=== PATIENT | male | born 1985 | race Caucasian/White ===

== ENCOUNTER → 2018-08-06 | Outpatient (REF) | payer OTHER ==
[2018-08-06 16:08] LABS: BLOOD UREA NITROGEN 17 MG/DL (7-18); CALCIUM LEVEL 9.4 MG/DL (8.5-10.1); CARBON DIOXIDE LEVEL 29 MEQ/L (21-32); CHLORIDE LEVEL 100 MEQ/L (98-107); CREATININE FOR GFR 0.86 MG/DL (0.70-1.30); GLOMERULAR FILTRATION RATE > 60.0 (>60); GLUCOSE, FASTING 119 MG/DL (70-100); SODIUM LEVEL 135 MEQ/L (136-145)
[2018-08-06 16:27] LABS: MALB URINE SIEMENS 95.8 MG/L; MAU/CREAT RATIO 33.2 MCG/MG (0.0-30.0)
[2018-08-11 00:09] LABS: CREATININE,RANDOM URINE 301.6 mg/dL (Not Estab.); URINE METANEPHR/CREAT RATIO 0.3 (0.0-1.0)
== END ==
LOC: MERGE 14:20 → M SFHCPLAZ 14:20
PROVIDERS: ATTEND Family Medicine
DX: I16.0 Hypertensive urgency (principal)

== ENCOUNTER 2020-01-09 10:51 | Emergency (ER) | payer OTHER ==
[~2020-01-09] VITALS: Ht 193 cm; Wt 118.1 kg
[2020-01-09] MEDS ORDERED: LISI-538 (10:58)
[2020-01-09] MEDS ORDERED: LISI40TA (10:58)
[2020-01-09] MEDS ORDERED: SUBO8MIS (10:58)
--- NOTE | 2020-01-09 12:09 | REPVR ---
PROCEDURE INFORMATION: Exam: US Duplex Left Lower Extremity Veins, Limited Exam date and time: 01/09/2020 11:38 AM Age: 34 years old Clinical indication: Swelling (edema) of limb; Lower extremity, left; Additional info: Left lower extremity swelling, rule out DVT TECHNIQUE: Imaging protocol: Real-time Duplex ultrasound of the Left Lower Extremity with 2-D strickland scale, color Doppler flow and spectral waveform analysis with image documentation. Limited exam focused on the left lower extremity veins. COMPARISON: No relevant prior studies available. FINDINGS: Left deep veins: The common femoral, femoral, and popliteal veins are patent without thrombus. Normal compressibility and/or augmentation response. Soft tissues: There is a 3.8 x 1.3 x 3.1 cm heterogeneous anechoic and echogenic complex-appearing fluid collection present within the popliteal fossa soft tissues. There is mild diffuse hypoechoic fluid within the subcutaneous fat adjacent to the collection the popliteal fossa. IMPRESSION: 1. No evidence of deep vein thrombosis in the visualized lower extremity. 2. Complex fluid collection at the popliteal fossa. This could represent a complex popliteal fossa cyst, however no definitive communication with the knee joint is demonstrated on this ultrasound. Clinical correlation for other complex fluid collection such as a hematoma or abscess is also needed. Electronically signed by: Kendall Kong On 01/09/2020 12:09:46 PM
[2020-01-09 12:41] VITALS: BP 147/83
== END 2020-01-09 12:52 | disposition home or self-care (01) ==
LOC: M ED 10:51
DX: M71.22 Synovial cyst of popliteal space [Baker], left knee (principal); R60.0 Localized edema; M79.652 Pain in left thigh; I10 Essential (primary) hypertension; Z79.899 Other long term (current) drug therapy; Z79.891 Long term (current) use of opiate analgesic

== ENCOUNTER 2020-12-04 17:37 | Emergency (ER) | payer OTHER ==
[~2020-12-04] VITALS: Ht 193 cm; Wt 111.4 kg
[2020-12-04 17:37] VITALS: BP 197/99
[~2020-12-04 17:37] MED LIST: LISI20TA33 PO; LISI40TA4; SUBO8MIS SL
== END 2020-12-04 19:24 | disposition left against medical advice (07) ==
LOC: M ED 17:37
DX: Z53.21 Procedure and treatment not carried out due to patient leaving prior to being seen by health care provider (principal)

== ENCOUNTER 2020-12-08 11:41 | Emergency (ER) | payer OTHER ==
[~2020-12-08] VITALS: Ht 193 cm; Wt 111.4 kg
--- NOTE | 2020-12-08 14:13 | REP ---
INDICATION: swelling/pain COMPARISON: 01/09/2020. TECHNIQUE: Real time compression and duplex Doppler interrogation of the left lower extremity deep venous system is performed, including the right common femoral vein.Compression of the left peroneal and posterior tibial veins is performed. FINDINGS: The left common femoral, superficial femoral and popliteal veins are fully compressible with transducer pressure and demonstrate normal spontaneous and phasic flow, without evidence of deep venous thrombosis.The right common femoral vein demonstrates no thrombus.The visualized left peroneal and posterior tibial veins demonstrate no thrombus, evaluation is limited due to edema.. In the medial upper left calf soft tissues there is a complex fluid collection measuring 13.4 x 1.4 x 3.4 cm. IMPRESSION: No evidence of deep venous thrombosis of the left lower extremity femoral popliteal venous system.No thrombus in the visualized left peroneal and posterior tibial veins. In the medial upper left calf soft tissues there is a complex fluid collection measuring 13.4 x 1.4 x 3.4 cm. <Electronically signed by Jonathan Sweeney > 12/08/20 [id number]
[2020-12-08] MEDS ORDERED: CEPH500C PO (14:59)
[2020-12-08] MEDS ORDERED: NAPR-837 PO (14:59)
[2020-12-08 15:20] VITALS: BP 162/96
--- NOTE | 2020-12-09 10:32 | ED PDOC ---
Post-Departure Follow-Up dr cummings faxed foal report of leg us. todd vidales calling pt to ensure pt duncan s follow up for reassessment. She will provide dr ledesma name and number ,mlCompa Coronado MD Dec 09, 2020 10:32
== END 2020-12-08 15:30 | disposition home or self-care (01) ==
LOC: M ED 11:41
DX: M79.662 Pain in left lower leg (principal); I10 Essential (primary) hypertension; F17.200 Nicotine dependence, unspecified, uncomplicated